=== PATIENT | male | born 2000 | race Caucasian/White ===

== ENCOUNTER 2023-06-26 22:56 | Emergency (ER) | payer OTHER ==
[~2023-06-26] VITALS: Ht 180.3 cm; Wt 70.3 kg
[2023-06-26 23:36] VITALS: BP 139/69; PULSE 60; RESP 17; TEMP 98; O2SAT 100
--- NOTE | 2023-06-26 23:40 | NUR ---
to lobby a/w bed ambulatory
[2023-06-27] MEDS ORDERED: BACITRACIN OINT 500 UNITS/GM PKT TP ONE (01:50)
--- NOTE | 2023-06-27 01:50 | NUR ---
Dr. Trevizo examining patient.
--- NOTE | 2023-06-27 02:00 | NUR ---
PATIENT PRESENTS TO ED WITH C/O SECOND DEGREE OIL BURN AT WORK TO LEFT FOREARM. AAOX4 WITH EVEN AND STEADY GAIT; LUNGS CLEAR BL; HR EVEN AND REGULAR; PT DENIES ANY FEVER, CP, SOB, OR COUGH AT THIS TIME; PATIENT STATES PAIN OF 10/10 AT THIS TIME; VSS; PATIENT POSITIONED FOR COMFORT; HOB ELEVATED; BEDRAILS UP X2; BED DOWN. ER MD AWARE OF PT STATUS.
[2023-06-27 02:13] VITALS: BP 139/69; PULSE 60; RESP 17; TEMP 98; O2SAT 100
--- NOTE | 2023-06-27 02:13 | NUR ---
Patient discharged with v/s stable. Written and verbal after care instructions given and explained. Patient verbalized understanding. Ambulatory with steady gait. All questions addressed prior to discharge. Advised to follow up with PMD.
== END 2023-06-27 02:13 | disposition home or self-care (01) ==
LOC: MED 22:56
DX: T22.212A Burn of second degree of left forearm, initial encounter (principal); X10.2XXA Contact with fats and cooking oils, initial encounter; Y93.89 Activity, other specified; Y92.511 Restaurant or cafe as the place of occurrence of the external cause; Y99.8 Other external cause status
CPT/HCPCS: 16020; 99282